=== PATIENT | male | born 1950 | race Caucasian/White ===

== ENCOUNTER → 2017-02-09 | Outpatient (REF) | payer MEDICARE, MEDICAID ==
[~2017-02-09] MED LIST: /DULO30CA OR; ASPI1TAB15 PO; CYMB60CA3 PO; FINA5TAB2 PO; GABA-282 PO; GLUC1000 OR; HYDROCODONE OR; IBUP80TA PO; INSULANT SC; INVO300T PO; LISI10TA4 OR; LISI10TA4 PO; LOVA10TA PO; LOVA40TA PO; MECL-68 PO; NEUR100C PO; OXYC1TAB23 PO; PLAV1TAB2 PO; TAMSULOSIN PO; VICODINES TAB OR
[2017-02-09 16:20] LABS: RBC ADVIA BF 0.01; RBC CALC. BF 10000 (< 10mm3 cells/uL); WBC ADVIA BF 19.3; WBC CALC. BF 19300 cells/uL (0-20)
[2017-02-09 16:23] LABS: SYNOVIAL FLUID COLOR YELLOW (YELLOW)
[2017-02-09 16:24] LABS: BF DIFF IF INDICATED? YES (NO)
[2017-02-09 16:25] LABS: CC BF DIFF EXAM CYTOCENTRIFUGE; HCT SOURCE LFT KNEE
[2017-02-09 17:29] LABS: CRYSTALS, BODY FLUID CA PYROPHOSPHATE (NONE SEEN)
== END ==
LOC: M LAB REF 13:01
PROVIDERS: ATTEND Orthopaedic Surgery
DX: M25.562 Pain in left knee (principal)

== ENCOUNTER 2017-04-05 20:21 | Emergency (ER) | payer MEDICARE, MEDICAID ==
[~2017-04-05] VITALS: Ht 172.7 cm; Wt 90.9 kg
[~2017-04-05 20:21] MED LIST changes: -ASPI1TAB15 PO; -CYMB60CA3 PO; -FINA5TAB2 PO; -GABA-282 PO; -IBUP80TA PO; -INSULANT SC; -INVO300T PO; -LISI10TA4 PO; -LOVA40TA PO; -MECL-68 PO; -OXYC1TAB23 PO; -PLAV1TAB2 PO; -TAMSULOSIN PO
[2017-04-05] MEDS ORDERED: GABA-282 PO (20:51)
[2017-04-05] MEDS ORDERED: LOVA40TA PO (20:51)
[2017-04-05] MEDS ORDERED: ASPI1TAB15 PO (20:51)
[2017-04-05] MEDS ORDERED: IBUP80TA PO (20:51)
[2017-04-05] MEDS ORDERED: OXYC1TAB23 PO (20:51)
[2017-04-05] MEDS ORDERED: MECL-68 PO (20:51)
[2017-04-05] MEDS ORDERED: FINA5TAB2 PO (20:51)
[2017-04-05] MEDS ORDERED: INVO300T PO (20:51)
[2017-04-05] MEDS ORDERED: TAMSULOSIN PO (20:51)
[2017-04-05] MEDS ORDERED: CYMB60CA3 PO (20:51)
[2017-04-05] MEDS ORDERED: INSULANT SC (20:51)
[2017-04-05] MEDS ORDERED: PLAV1TAB2 PO (20:51)
[2017-04-05] MEDS ORDERED: LISI10TA4 PO (20:51)
[2017-04-05] MEDS ORDERED: HYDROmorphone HCL 1 MG/ML SYRINGE (J1170) IM ONE ×2 (21:45→22:30)
[2017-04-05 23:13] VITALS: BP 147/73
--- NOTE | 2017-04-06 07:54 | REP ---
Clinical: Pain. Technique: AP, lateral, bilateral oblique and sunrise views. Findings: Moderate tricompartmental osteoarthritic degenerative changes are appreciated. Findings include cortical irregularity, early spurring/osteophyte formation, chondrocalcinosis, and joint space narrowing. No acute fracture dislocation. Lateral view cannot exclude effusion. Impression: Moderate tricompartmental osteoarthritic degenerative changes. Cannot exclude effusion. Signed by Keron Guzman MD 04/06/2017 07:46 A
== END 2017-04-05 23:31 | disposition home or self-care (01) ==
LOC: M ED 20:21
DX: M25.561 Pain in right knee (principal); M17.11 Unilateral primary osteoarthritis, right knee; I10 Essential (primary) hypertension; E78.00 Pure hypercholesterolemia, unspecified; I73.9 Peripheral vascular disease, unspecified; E11.9 Type 2 diabetes mellitus without complications; F17.210 Nicotine dependence, cigarettes, uncomplicated; Z88.5 Allergy status to narcotic agent; Z79.899 Other long term (current) drug therapy; Z79.82 Long term (current) use of aspirin; Z79.02 Long term (current) use of antithrombotics/antiplatelets; Z79.4 Long term (current) use of insulin
CPT/HCPCS: 73564; 96372; 99282; J1170

== ENCOUNTER → 2017-08-21 | Outpatient (REF) | payer MEDICARE, MEDICAID ==
[2017-08-21 15:40] LABS: TOTAL PROTEIN,RANDOM URINE 118.8 MG/DL (0.0-12.0); URINE TOTAL PROTEIN 118.8 MG/DL (0-12)
[2017-08-21 15:50] LABS: IMMUNOGLOBULIN A 73.8 MG/DL (70-400); IMMUNOGLOBULIN G 545 MG/DL (681-1648); IMMUNOGLOBULIN M 56.8 MG/DL (40-230); TOTAL PROTEIN 6.3 GM/DL (6.4-8.2)
[2017-08-23 00:06] LABS: BETA 2 MICROGLOBULIN 4.5 mg/L (0.6-2.4)
[2017-08-23 00:06] LABS: FREE KAPPA LIGHT CHAINS SERUM 2144.8 mg/L (3.3-19.4); FREE LAMBDA LIGHT CHAINS SERUM 11.8 mg/L (5.7-26.3); KAPPA/LAMBDA RATIO SERUM 181.76 (0.26-1.65)
[2017-08-25 11:04] LABS: ALBUMIN % 56.8 % (55.8-66.1); ALPHA-1-GLOBULIN % 5.8 % (2.9-4.9); ALPHA-2-GLOBULINS % 14.5 % (7.1-11.8); BETA-1-GLOBULINS % 7.6 % (4.7-7.2); BETA-2-GLOBULINS % 4.6 % (3.2-6.5); GAMMA GLOBULIN % 10.7 % (11.1-18.8)
[2017-08-25 11:05] LABS: ALBUMIN 3.58 GM/DL (3.29-5.55); ALPHA-1-GLOBULINS 0.37 GM/DL (0.17-0.41); ALPHA-2-GLOBULINS 0.91 GM/DL (0.42-0.99); BETA-1-GLOBULINS 0.48 GM/DL (0.28-0.60); BETA-2-GLOBULINS 0.29 GM/DL (0.19-0.55); GAMMA GLOBULINS 0.67 GM/DL (0.65-1.58)
[2017-08-25 11:23] LABS: IMMUNOTYPING SERUM KAPPA ABNORMAL (NORMAL)
== END ==
LOC: M LAB REF 13:21
DX: R79.89 Other specified abnormal findings of blood chemistry (principal); M89.9 Disorder of bone, unspecified

== ENCOUNTER → 2017-08-21 | Outpatient (CLI) | payer MEDICARE, MEDICAID | LOC: M RAD 10:47 | DX: M51.35 Other intervertebral disc degeneration, thoracolumbar region (principal); R93.7 Abnormal findings on diagnostic imaging of other parts of musculoskeletal system; D47.2 Monoclonal gammopathy; R79.89 Other specified abnormal findings of blood chemistry; M89.9 Disorder of bone, unspecified | CPT/HCPCS: 77075 ==

== ENCOUNTER → 2017-08-27 | Outpatient (REF) | payer MEDICARE, MEDICAID | LOC: M LAB REF 15:20 | DX: C90.00 Multiple myeloma not having achieved remission (principal); D47.2 Monoclonal gammopathy | CPT/HCPCS: 88300 ==